=== PATIENT | female | born 1955 | race Caucasian/White ===

== ENCOUNTER 2020-05-31 04:23 | Day surgery (SDC) | payer BC ==
[2020-05-30 13:44] VITALS: BMI 29.0
[2020-05-31] MEDS ORDERED: LIDOCAINE 1%/EPI 1:100000 (50 ML MULTI DOSE VIAL) ONE (07:12)
[2020-05-31] MEDS ORDERED: MIDAZOLAM HCL 2 MG/2 ML SINGLE DOSE VIAL ONE (07:56)
[2020-05-31] MEDS ORDERED: PROPOFOL 20 ML ONE (07:57)
[2020-05-31] MEDS ORDERED: SUCCINYLCHOLINE CHLORIDE 200 MG/10 ML SYRINGE ONE (07:57)
[2020-05-31] MEDS ORDERED: LIDOCAINE 1%/EPI 1:100000 (50 ML MULTI DOSE VIAL) INF ONE (08:23)
[2020-05-31] MEDS ORDERED: BUPIVACAINE HCL/PF 0.5% (5 MG/ML) 30 ML VIAL IJ ONE (08:41)
[2020-05-31] MEDS ORDERED: oxyCODONE HCL 5 MG TABLET PO PRN (09:01)
[2020-05-31] MEDS ORDERED: ONDANSETRON 4 MG/2 ML VIAL IVPUSH PRN (09:01)
[2020-05-31] MEDS ORDERED: PROMETHAZINE HCL 25 MG/1 ML VIAL IVPUSH PRN (09:01)
[2020-05-31] MEDS ORDERED: LACTATED RINGERS SOLUTION 1,000 ML IV SCH (09:15)
[2020-05-31 10:07] VITALS: BP 149/76; TEMP 98.1
[2020-05-31 10:10] VITALS: PULSE 67
== END 2020-05-31 10:15 | disposition home or self-care (01) ==
LOC: JASU-SURG 04:23
PROVIDERS: ATTEND Orthopaedic Surgery
PROC: 0SBD4ZZ Excision of Left Knee Joint, Percutaneous Endoscopic Approach (ICD-10-PCS; principal; 2020-05-31 08:00)
DX: M23.222 Derangement of posterior horn of medial meniscus due to old tear or injury, left knee (principal); M23.92 Unspecified internal derangement of left knee
CPT/HCPCS: 88304-TC; 94760

== ENCOUNTER 2021-12-18 08:12 | Emergency (ER) | payer OTHER, BC ==
[2021-12-18 08:19] VITALS: BP 171/100; PULSE 80; RESP 16; TEMP 98; BMI 29.0
== END 2021-12-18 09:21 | disposition home or self-care (01) ==
LOC: JERFT 08:12 → JER 08:12 → JERFT 09:21
DX: S80.01XA Contusion of right knee, initial encounter (principal); W19.XXXA Unspecified fall, initial encounter
CPT/HCPCS: 73562-TC-RT-FY; 73590-TC-RT-FY; 99283-25

== ENCOUNTER 2024-01-01 05:21 | Day surgery (SDC) | payer BC ==
[2023-12-31 09:43] VITALS: BMI 29.9
[2024-01-01 08:19] VITALS: RESP 16; TEMP 97.7
[2024-01-01 09:01] VITALS: BP 127/85; PULSE 79
== END 2024-01-01 09:15 | disposition home or self-care (01) ==
LOC: JASU-ENDO 05:21
PROVIDERS: ATTEND Internal Medicine Gastroenterology
PROC: 0DBN8ZX Excision of Sigmoid Colon, Via Natural or Artificial Opening Endoscopic, Diagnostic (ICD-10-PCS; principal; 2024-01-01 07:30)
DX: Z12.11 Encounter for screening for malignant neoplasm of colon (principal); D12.7 Benign neoplasm of rectosigmoid junction; K57.30 Diverticulosis of large intestine without perforation or abscess without bleeding; Z80.0 Family history of malignant neoplasm of digestive organs
CPT/HCPCS: 88305-TC